=== PATIENT | female | born 1965 | race Caucasian/White ===

== ENCOUNTER 2016-05-29 22:30 | Emergency (ER) | payer MEDICAID ==
[2016-05-29 22:59] VITALS: BP 108/78
--- NOTE | 2016-05-29 23:11 | EDM.PDOC ---
ED HPI Behavioral Health - General Chief Complaint: Behavioral/Psych Stated Complaint: [phone] PSYCHOLOGICAL PROB Time Seen by Provider: 05/29/16 23:10 Source of Information: Reports: Patient Exam Limitations: Reports: No limitations - History of Present Illness INITIAL COMMENTS - FREE TEXT/NARRATIVE: 51 yo white Female c/o feeling bad and does not trust herself and feel unsafe at her living area. PMHx. Psych in the past - 15 yrs. ago no f/u and not eating well. Pt. admits to family problems with daughter on Methamphetamine and the Patient not being able to see her grandchildren. Pt. states PMHx. Chronic Pain. Onset of Symptoms: Reports: other (some time) Symptom Onset Date: 03/23/16 Symptom Onset Time: 12:00 Duration of Symptoms: Reports: Week(s):, Chronic, Getting worse Severity: moderate Context, Behavioral Health: Reports: living situation, family dynamics Associated Symptoms: Reports: anxiety, agitation, depression, decreased concentration, insomnia, paranoia, suicidal thought - Related Data Allergies Allergy/AdvReac Type Severity Reaction Status Date / Time codeine Allergy Cannot Verified 05/29/16 22:59 Remember Sulfa (Sulfonamide Allergy Cannot Verified 05/29/16 22:59 Antibiotics) Remember nexium Allergy Mild tongue Uncoded 12/13/15 12:29 swelling Home Medications: Home Meds ALPRAZolam [Xanax] 0.5 mg PO QID PRN 05/29/16 [History] Upper Back Pain Score (Numeric/FACES): 6 Past Medical History HEENT History: Reports: None Cardiovascular History: Reports: None Respiratory History: Reports: None Gastrointestinal History: Reports: None Genitourinary History: Reports: None EVICTION SPECIALIST History: Reports: None Neurological History: Reports: None Psychiatric History: Reports: None Endocrine/Metabolic History: Reports: None Hematologic History: Reports: None Immunologic History: Reports: None Oncologic (Cancer) History: Reports: None Dermatologic History: Reports: None - Infectious Disease History Infectious Disease History: Reports: Chicken pox, Measles, Mumps - Past Surgical History Head Surgeries/Procedures: Reports: None Other Musculoskeletal Surgeries/Procedures:: back surgury 2008 Social & Family History - Tobacco Use Smoking Status *Q: Current Every Day Smoker Years of Tobacco use: 9 Packs/Tins Daily: 1 Second Hand Smoke Exposure: No - Recreational Drug Use Recreational Drug Use: No ED ROS GENERAL - Review of Systems Review Of Systems: See Below Constitutional: Reports: decreased appetite HEENT: Reports: No symptoms Respiratory: Reports: No Symptoms Cardiovascular: Reports: No symptoms Endocrine: Reports: no symptoms GI/Abdominal: Reports: No symptoms : Reports: no symptoms Musculoskeletal: Reports: no symptoms Skin: Reports: no symptoms Neurological: Reports: No Symptoms Psychiatric: Reports: Agitation, Anxiety, Depression, Mood lability, Suicidal ideation Hematologic/Lymphatic: Reports: no symptoms Immunologic: Reports: no symptoms ED EXAM, BEHAVIORAL HEALTH - Physical Exam Exam: See Below Exam Limited By: No limitations General Appearance: alert, no apparent distress, anxious, thin Eye Exam: bilateral eye: PERRL Ears: normal external exam Nose: normal inspection Throat/Mouth: Normal inspection Head: atraumatic Neck: normal inspection Respiratory/Chest: no respiratory distress, lungs clear Cardiovascular: normal peripheral pulses, regular rate, rhythm GI/Abdominal: normal bowel sounds, soft Back Exam: normal inspection Extremities: normal inspection, normal range of motion Neurological: alert, CN II-XII intact, no motor/sensory deficits Psychiatric: depressed mood, tearful, suicidal thoughts, tangential thoughts Skin Exam: Warm, Intact, Normal color COURSE, BEHAVIORAL HEALTH COMP - Course Vital Signs: Last Vital Signs Temp 36.5 C 05/29/16 22:54 Pulse 102 H 05/29/16 22:54 Resp 18 05/29/16 22:54 BP 108/78 05/29/16 22:54 Pulse Ox 100 05/29/16 22:54 Orders, Labs, Meds: Active Orders 24 hr Category Date Time Status Behavioral Health Evaluation [CONS] Routine Cons 05/29/16 23:27 Active Laboratory Tests 05/29/16 05/29/16 05/29/16 Range/Units 23:14 23:14 23:34 WBC 8.1 (5.0-10.0) 10^3/uL RBC 4.50 (4.2-5.4) 10^6/uL Hgb 15.6 (12.0-16.0) g/dL Hct 45.1 (37.0-47.0) % MCV 100.2 H (80-100) fL MCH 34.7 H (27.0-34.0) pg MCHC 34.6 (33.0-35.0) g/dL Plt Count 212 (150-450) 10^3/uL Neut % (Auto) 41.6 L (42.2-75.2) % Lymph % (Auto) 44.3 (20.5-50.1) % [place] % (Auto) 9.7 H (2-8) % Eos % (Auto) 4.0 H (1.0-3.0) % Baso % (Auto) 0.4 (0.0-1.0) % Sodium (135-145) mmol/L Potassium (3.6-5.0) mmol/L Chloride (101-111) mmol/L Carbon Dioxide (21.0-31.0) mmol/L Anion Gap BUN (7-18) mg/dL Creatinine (0.6-1.3) mg/dL Est Cr Clr Drug Dosing mL/min Estimated GFR (MDRD) BUN/Creatinine Ratio Glucose (74-105) mg/dL Calcium (8.4-10.2) mg/dl Magnesium (1.8-2.5) mg/dL Total Bilirubin (0.2-1.0) mg/dL AST (10-42) IU/L ALT (10-60) IU/L Alkaline Phosphatase (42-121) IU/L Total Protein (6.7-8.2) g/dl Albumin (3.2-5.5) g/dl Globulin Albumin/Globulin Ratio TSH, Ultra Sensitive (0.35-7.0) uIu/mL Urine Color Yellow (YELLOW) Urine Appearance Clear (CLEAR) Urine pH 6.5 (5.0-9.0) Ur Specific [place] <= 1.005 (1.005-1.030) Urine Protein Negative (NEGATIVE) Urine Glucose (UA) Negative (NEGATIVE) Urine Ketones Negative (NEGATIVE) Urine Occult Blood Negative (NEGATIVE) Urine Nitrite Negative (NEGATIVE) Urine Bilirubin Negative (NEGATIVE) Urine Urobilinogen 0.2 (0.2-1.0) mg/dL Ur Leukocyte Esterase Negative (NEGATIVE) Urine RBC 0-5 /HPF Urine WBC 0-5 (0-5/HPF) /HPF Ur Epithelial Cells Few /HPF Urine Bacteria Few (0-FEW/HPF) /HPF Salicylates Urine Opiates Screen Negative (NEGATIVE) Ur Oxycodone Screen Negative (NEGATIVE) Urine Methadone Screen Negative (NEGATIVE) Acetaminophen Ur Barbiturates Screen Negative (NEGATIVE) U Tricyclic Antidepress Negative (NEGATIVE) Ur Phencyclidine Scrn Negative (NEGATIVE) Ur Amphetamine Screen Negative (NEGATIVE) U Methamphetamines Scrn Negative (NEGATIVE) Urine MDMA Screen Negative (NEGATIVE) U Benzodiazepines Scrn Negative (NEGATIVE) Urine Cocaine Screen Negative (NEGATIVE) U Marijuana (THC) Screen Positive H (NEGATIVE) Ethyl Alcohol mg/dL 05/29/16 05/29/16 Range/Units 23:34 23:34 WBC (5.0-10.0) 10^3/uL RBC (4.2-5.4) 10^6/uL Hgb (12.0-16.0) g/dL Hct (37.0-47.0) % MCV (80-100) fL MCH (27.0-34.0) pg MCHC (33.0-35.0) g/dL Plt Count (150-450) 10^3/uL Neut % (Auto) (42.2-75.2) % Lymph % (Auto) (20.5-50.1) % [place] % (Auto) (2-8) % Eos % (Auto) (1.0-3.0) % Baso % (Auto) (0.0-1.0) % Sodium 140 (135-145) mmol/L Potassium 4.0 (3.6-5.0) mmol/L Chloride 102 (101-111) mmol/L Carbon Dioxide 29.0 (21.0-31.0) mmol/L Anion Gap 13.0 BUN 9 (7-18) mg/dL Creatinine 0.9 (0.6-1.3) mg/dL Est Cr Clr Drug Dosing 52.36 mL/min Estimated GFR (MDRD) > 60 BUN/Creatinine Ratio 10.00 Glucose 79 (74-105) mg/dL Calcium 9.1 (8.4-10.2) mg/dl Magnesium 2.0 (1.8-2.5) mg/dL Total Bilirubin 0.2 (0.2-1.0) mg/dL AST 97 H (10-42) IU/L ALT 85 H (10-60) IU/L Alkaline Phosphatase 78 (42-121) IU/L Total Protein 6.7 (6.7-8.2) g/dl Albumin 3.8 (3.2-5.5) g/dl Globulin 2.9 Albumin/Globulin Ratio 1.31 TSH, Ultra Sensitive 2.43 (0.35-7.0) uIu/mL Urine Color (YELLOW) Urine Appearance (CLEAR) Urine pH (5.0-9.0) Ur Specific [place] (1.005-1.030) Urine Protein (NEGATIVE) Urine Glucose (UA) (NEGATIVE) Urine Ketones (NEGATIVE) Urine Occult Blood (NEGATIVE) Urine Nitrite (NEGATIVE) Urine Bilirubin (NEGATIVE) Urine Urobilinogen (0.2-1.0) mg/dL Ur Leukocyte Esterase (NEGATIVE) Urine RBC /HPF Urine WBC (0-5/HPF) /HPF Ur Epithelial Cells /HPF Urine Bacteria (0-FEW/HPF) /HPF Salicylates < 4 Urine Opiates Screen (NEGATIVE) Ur Oxycodone Screen (NEGATIVE) Urine Methadone Screen (NEGATIVE) Acetaminophen < 10 Ur Barbiturates Screen (NEGATIVE) U Tricyclic Antidepress (NEGATIVE) Ur Phencyclidine Scrn (NEGATIVE) Ur Amphetamine Screen (NEGATIVE) U Methamphetamines Scrn (NEGATIVE) Urine MDMA Screen (NEGATIVE) U Benzodiazepines Scrn (NEGATIVE) Urine Cocaine Screen (NEGATIVE) U Marijuana (THC) Screen (NEGATIVE) Ethyl Alcohol < 5 mg/dL Discharge vs Psych Eval/Treatment:: 05/30/16 01:46 Pt. evaluated by Behavioral health worker and informed the worker that she has no psychiatric problems but is having chronic pain. ( Note; Patient did not inform ED nurse or ED doctor of her chronic pain.) Departure - Departure Time of Disposition: 01:48 Disposition: Home, Self-Care 01 Condition: good Clinical Impression: Depressive disorder, Elevated LFTs Chronic pain Qualifiers: Chronic pain type: chronic pain syndrome Qualified Code(s): G89.4 - Chronic pain syndrome Forms: ED Department Discharge Additional Instructions: Rest Take daily multivitamin Take medication for pain as prescribed only - Neurontin 300mg TID # 15 Increase intake of Fluids ( Water / Juice) Stop all Alcohol and try otc Milk Thistle F/U w/ Behavioral Health 2pm on Tuesday May 31, 2016 F/U w/ PCP - My Orders Last 24 Hours: My Active Orders 05/29/16 23:27 Behavioral Health Evaluation [CONS] Routine - Assessment/Plan Last 24 Hours: My Active Orders 05/29/16 23:27 Behavioral Health Evaluation [CONS] Routine
[2016-05-30 00:03] LABS: CHLORIDE,CL 102 mmol/L (101-111); SODIUM,NA 140 mmol/L (135-145)
[2016-05-30 00:04] LABS: ACETAMINOPHEN < 10
[2016-05-30] MEDS ORDERED: Gabapentin 300 MG Cap PO ONE (01:48)
[2016-05-30] MEDS ORDERED: Ondansetron 4 MG Tab.DIS PO ONE (02:02)
== END 2016-05-30 02:15 | disposition left against medical advice (07) ==
LOC: DL.ED 22:30
DX: F32.9 Major depressive disorder, single episode, unspecified (principal); G89.4 Chronic pain syndrome; R79.89 Other specified abnormal findings of blood chemistry; F17.200 Nicotine dependence, unspecified, uncomplicated; Z88.2 Allergy status to sulfonamides; Z88.8 Allergy status to other drugs, medicaments and biological substances
CPT/HCPCS: 36415; 80053; 80305; 81001; 83735; 84443; 85025; 99284; G0480

== ENCOUNTER 2022-11-16 07:19 | Emergency (ER) | payer MEDICAID ==
[2022-11-16 07:55] LABS: BASOPHILS PERCENT AUTO 0.4 % (0.0-1.0); EOSINOPHILS PERCENT AUTO 3.7 % (1.0-3.0); HEMATOCRIT 44.7 % (37.0-47.0); HEMOGLOBIN 15.9 g/dL (12.0-16.0); LYMPHOCYTES PERCENT AUTO 49.6 % (20.5-50.1); MEAN CORPUSCULAR HEMOGLOBIN 35.6 pg (27.0-34.0); MEAN CORPUSCULAR HGB CONC 35.6 g/dL (33.0-35.0); NEUTROPHILS PERCENT AUTO 36.3 % (42.2-75.2); PLATELET COUNT,PLT 143 10^3/uL (150-450); RED BLOOD CELL COUNT 4.47 10^6/uL (4.2-5.4); WHITE BLOOD CELL COUNT,WBC 6.8 10^3/uL (5.0-10.0)
[2022-11-16 08:01] LABS: APPEARANCE,URINE CLEAR (CLEAR); BILIRUBIN,URINE NEGATIVE (NEGATIVE); COLOR,URINE YELLOW (YELLOW); GLUCOSE,URINE NEGATIVE (NEGATIVE); KETONES,URINE NEGATIVE (NEGATIVE); LEUKOCYTE ESTERASE,URINE NEGATIVE (NEGATIVE); NITRITE,URINE NEGATIVE (NEGATIVE); OCCULT BLOOD,URINE NEGATIVE (NEGATIVE); PROTEIN,URINE NEGATIVE (NEGATIVE); UROBILINOGEN,URINE 0.2 mg/dL (0.2-1.0)
[2022-11-16 08:04] LABS: AMPHETAMINES,URINE NEGATIVE (NEGATIVE); BARBITURATES,URINE NEGATIVE (NEGATIVE); BENZODIAZEPINE,URINE NEGATIVE (NEGATIVE); MDMA (ECSTASY), URINE NEGATIVE (NEGATIVE); METHADONE,URINE NEGATIVE (NEGATIVE); METHAMPHETAMINES,URINE NEGATIVE (NEGATIVE); OPIATES,URINE NEGATIVE (NEGATIVE); OXYCODONE,URINE NEGATIVE (NEGATIVE); PHENCYCLIDINE,URINE NEGATIVE (NEGATIVE); TCA,URINE NEGATIVE (NEGATIVE)
[2022-11-16 08:05] LABS: PROTHROMBIN TIME 10.4 SEC (9.0-12.0); PTT,PARTIAL THROMBOPLSTIN TIME 27.5 SEC (22.0-34.0)
[2022-11-16 08:07] LABS: ALANINE AMINOTRANSFERASE,ALT 157 U/L (14-59); ALBUMIN 3.8 g/dL (3.4-5.0); ALKALINE PHOSPHATASE 124 U/L (46-116); ANION GAP 12.6 mEq/L (7-13); ASPARTATE AMNIOTRANSFERASE,AST 147 U/L (15-37); BILIRUBIN TOTAL 0.4 mg/dL (0.2-1.0); BLOOD UREA NITROGEN,BUN 12 mg/dL (7-18); BUN/CREATININE RATIO 14.5 (No establ ref range); CALCIUM 9.1 mg/dL (8.5-10.1); CARBON DIOXIDE,CO2 27 mmol/L (21-32); CHLORIDE,CL 103 mmol/L (98-107); CREATININE 0.83 mg/dL (0.55-1.02); EST CRCL DRUG DOSING (CG) 57.14 mL/min; GLUCOSE RANDOM 114 mg/dL (70-99); LIPASE 105 U/L (16-77); POTASSIUM,K 4.6 mmol/L (3.5-5.1); PROTEIN TOTAL,TP 7.6 g/dL (6.4-8.2); SODIUM,NA 138 mmol/L (136-145)
[2022-11-16 08:08] LABS: C-REACTIVE PROTEIN < 0.05 ng/dL (<=0.30); ESTIMATED GFR 82 mL/min (>=60); ETHANOL BLOOD MEDICAL < 3 mg/dL (0)
[2022-11-16 08:17] LABS: B-TYPE NATRIURETIC PEPTIDE,BNP 19 pg/ml (0-100)
[2022-11-16 08:24] LABS: D-DIMER QUANTITATIVE < 100 ng/mL (0-400)
[2022-11-16] MEDS ORDERED: Ketorolac 30 MG/ML SDV IVPUSH ONE (08:28)
[2022-11-16] MEDS ORDERED: Lactated Ringers 1,000 ML IV ONE (08:28)
[2022-11-16] MEDS ORDERED: Ondansetron 4 MG/2 ML SDV IVPUSH ONE (08:32)
[2022-11-16] MEDS ORDERED: Iopamidol 612 MG/ML 100 ML Bottle IVPUSH ONE (08:35)
[2022-11-16] MEDS ORDERED: Metoclopramide 10 MG/2 ML SDV IVPUSH ONE (09:20)
[2022-11-16 09:32] VITALS: BP 139/91; PULSE 62
== END 2022-11-16 09:57 | disposition home or self-care (01) ==
LOC: DL.ED 07:19
DX: K21.00 Gastro-esophageal reflux disease with esophagitis, without bleeding (principal); F17.210 Nicotine dependence, cigarettes, uncomplicated; Z88.2 Allergy status to sulfonamides; Z88.8 Allergy status to other drugs, medicaments and biological substances; Z88.5 Allergy status to narcotic agent; Z91.030 Bee allergy status; Z79.899 Other long term (current) drug therapy
CPT/HCPCS: 36415; 71045; 74177; 80053; 80305-QW; 80307; 81003; 83690; 83880; 84484; 85025; 85379; 85610; 85730; 86140; 93005; 93010; 96361; 96374; 96375; 99284; 99285-25; J1885; J2405; J2765; J7120; Q9967

== ENCOUNTER 2023-07-11 22:57 | Emergency (ER) | payer MEDICAID ==
[2023-07-11] MEDS: Ketorolac 30 MG/ML SDV IM ONE (23:48)
[2023-07-11] MEDS: Cephalexin 500 MG Cap PO ONE (23:53)
[2023-07-11 23:56] VITALS: BP 136/89; PULSE 98
== END 2023-07-12 00:20 | disposition home or self-care (01) ==
LOC: DL.ED 22:57
DX: L03.114 Cellulitis of left upper limb (principal); L25.9 Unspecified contact dermatitis, unspecified cause; F17.210 Nicotine dependence, cigarettes, uncomplicated; Z90.710 Acquired absence of both cervix and uterus; Z88.8 Allergy status to other drugs, medicaments and biological substances; Z91.014 Allergy to mammalian meats; Z88.2 Allergy status to sulfonamides
CPT/HCPCS: 99283; A9270-GY; J1885

== ENCOUNTER 2023-08-20 13:19 | Emergency (ER) | payer MEDICAID ==
[2023-08-20] MEDS: Sodium Chloride 0.9% 1,000 ML IV ONE (13:42)
[2023-08-20 13:45] VITALS: BP 143/87; PULSE 63
[2023-08-20] MEDS: Sodium Chloride 0.9% 10 ML Syringe FLUSH PRN (13:50)
[2023-08-20 14:07] LABS: INR 1.2 (0.9-1.2); PROTHROMBIN TIME 12.4 SEC (9.0-12.0); PTT,PARTIAL THROMBOPLSTIN TIME 25.4 SEC (22.0-34.0)
[2023-08-20 14:09] LABS: APPEARANCE,URINE CLEAR (CLEAR); BILIRUBIN,URINE NEGATIVE (NEGATIVE); COLOR,URINE YELLOW (YELLOW); GLUCOSE,URINE NEGATIVE (NEGATIVE); KETONES,URINE NEGATIVE (NEGATIVE); LEUKOCYTE ESTERASE,URINE SMALL (NEGATIVE); NITRITE,URINE NEGATIVE (NEGATIVE); OCCULT BLOOD,URINE NEGATIVE (NEGATIVE); PROTEIN,URINE NEGATIVE (NEGATIVE); UROBILINOGEN,URINE 0.2 mg/dL (0.2-1.0)
[2023-08-20 14:11] LABS: LACTIC ACID 3.1 mmol/L (0.4-2.0)
[2023-08-20 14:16] LABS: AMPHETAMINES,URINE NEGATIVE (NEGATIVE); BARBITURATES,URINE NEGATIVE (NEGATIVE); BENZODIAZEPINE,URINE NEGATIVE (NEGATIVE); MDMA (ECSTASY), URINE NEGATIVE (NEGATIVE); METHADONE,URINE NEGATIVE (NEGATIVE); METHAMPHETAMINES,URINE NEGATIVE (NEGATIVE); OPIATES,URINE NEGATIVE (NEGATIVE); OXYCODONE,URINE NEGATIVE (NEGATIVE); PHENCYCLIDINE,URINE NEGATIVE (NEGATIVE); TCA,URINE NEGATIVE (NEGATIVE)
[2023-08-20 14:16] LABS: ALANINE AMINOTRANSFERASE,ALT 346 U/L (14-59); ALBUMIN 3.7 g/dL (3.4-5.0); ALKALINE PHOSPHATASE 156 U/L (46-116); AMYLASE 65 U/L (25-115); ANION GAP 16.8 mEq/L (7-13); ASPARTATE AMNIOTRANSFERASE,AST 391 U/L (15-37); BILIRUBIN TOTAL 1.2 mg/dL (0.2-1.0); BLOOD UREA NITROGEN,BUN 16 mg/dL (7-18); BUN/CREATININE RATIO 19.3 (No establ ref range); C-REACTIVE PROTEIN < 0.50 ng/dL (<=0.50); CALCIUM 8.9 mg/dL (8.5-10.1); CARBON DIOXIDE,CO2 22 mmol/L (21-32); CHLORIDE,CL 101 mmol/L (98-107); CREATININE 0.83 mg/dL (0.55-1.02); EST CRCL DRUG DOSING (CG) 51.21 mL/min; ESTIMATED GFR 81 mL/min (>=60); ETHANOL BLOOD MEDICAL 26 mg/dL (0); GLUCOSE RANDOM 104 mg/dL (70-99); LIPASE 77 U/L (16-77); MAGNESIUM 2.1 mg/dL (1.8-2.4); POTASSIUM,K 3.8 mmol/L (3.5-5.1); PROTEIN TOTAL,TP 7.4 g/dL (6.4-8.2); SODIUM,NA 136 mmol/L (136-145); TSH ULTRASENSITIVE 2.73 uIU/mL (0.36-3.74)
[2023-08-20 14:23] LABS: BACTERIA,URINE FEW /HPF (0-FEW/HPF); EPITHELIAL CELLS,URINE MODERATE /HPF (NOT SEEN); MUCUS,URINE FEW /LPF (NOT SEEN); RBC,URINE 0-5 /HPF (0-5)
[2023-08-20] MEDS: LORazepam 2 MG/ML SDV IVPUSH ONE (14:24)
[2023-08-20] MEDS: MVI, Adult with Vitamin K 10 ML, Folic Acid 1 MG, Thiamine 100 MG in Lactated Ringers 1... IV ONE (14:28)
[2023-08-20 14:31] LABS: BASOPHILS PERCENT AUTO 0.5 % (0.0-1.0); EOSINOPHILS PERCENT AUTO 0.3 % (1.0-3.0); HEMOGLOBIN 15.3 g/dL (12.0-16.0); LYMPHOCYTES PERCENT AUTO 38.4 % (20.5-50.1); MEAN CORPUSCULAR HEMOGLOBIN 38.3 pg (27.0-34.0); MEAN CORPUSCULAR HGB CONC 36.4 g/dL (33.0-35.0); MEAN CORPUSCULAR VOLUME 105.3 fL (80-100); MONOCYTES PERCENT AUTO 8.7 % (2-8); NEUTROPHILS PERCENT AUTO 52.1 % (42.2-75.2); PLATELET COUNT,PLT 119 10^3/uL (150-450); RED BLOOD CELL COUNT 3.99 10^6/uL (4.2-5.4); WHITE BLOOD CELL COUNT,WBC 6.7 10^3/uL (5.0-10.0)
[2023-08-20] MEDS: Iopamidol 612 MG/ML 100 ML Bottle IVPUSH ONE (14:54)
[2023-08-20] MEDS: HYDROmorphone 1 MG/ML Syringe IVPUSH ONE (15:19)
[2023-08-20] MEDS: methylPREDNISolone Sodium Succinate 125 MG/2 ML SDV IVPUSH ONE (15:38)
[2023-08-20] MEDS: Metoclopramide 10 MG/2 ML SDV IVPUSH ONE (15:38)
[2023-08-20] MEDS: Take Home: traMADol 50 MG, 4 Tab Pack PO ONE (15:57)
== END 2023-08-20 16:15 | disposition home or self-care (01) ==
LOC: DL.ED 13:19
DX: K52.9 Noninfective gastroenteritis and colitis, unspecified (principal); K75.9 Inflammatory liver disease, unspecified; F10.29 Alcohol dependence with unspecified alcohol-induced disorder; F41.8 Other specified anxiety disorders; R74.01 Elevation of levels of liver transaminase levels; R63.0 Anorexia; F17.210 Nicotine dependence, cigarettes, uncomplicated; Z90.710 Acquired absence of both cervix and uterus; Z88.2 Allergy status to sulfonamides; Z88.5 Allergy status to narcotic agent; Z91.030 Bee allergy status
CPT/HCPCS: 36415; 71045; 74177; 80053; 80305; 80307; 81001; 82140; 82150; 83605; 83690; 83735; 84145; 84443; 84484; 85025; 85610; 85730; 86140; 87086; 93005; 93010; 96361; 96365; 96375; 99285; A9270; J1170; J2060; J2765; J2919; J3411; J7030; J7120; Q9967; 87088; 87186; J3490

== ENCOUNTER 2023-10-02 06:48 | Day surgery (SDC) | payer MEDICAID ==
[2023-10-02] MEDS ORDERED: fentaNYL 100 MCG/2 ML SDV ONE (07:08)
[2023-10-02] MEDS ORDERED: Midazolam 1 MG/ML 2 ML SDV ONE (07:08)
[2023-10-02] MEDS: Dextrose 5%-0.45% NaCl 1,000 ML IV SCH (07:15)
[2023-10-02] MEDS: fentaNYL 100 MCG/2 ML SDV IV ONE ×6 (08:03→08:15)
[2023-10-02] MEDS: Midazolam 1 MG/ML 2 ML SDV IV ONE ×6 (08:05→08:10)
[2023-10-02 11:49] VITALS: PULSE 62
[2023-10-02 11:50] VITALS: BP 118/81
== END 2023-10-02 10:52 | disposition home or self-care (01) ==
LOC: DL.ENDO 06:48
PROVIDERS: ATTEND Internal Medicine Gastroenterology
DX: Z12.11 Encounter for screening for malignant neoplasm of colon (principal); K76.9 Liver disease, unspecified; F41.1 Generalized anxiety disorder; F17.210 Nicotine dependence, cigarettes, uncomplicated
CPT/HCPCS: J2250; J3010; J7799

== ENCOUNTER 2024-09-11 14:07 | Emergency (ER) | payer MEDICAID ==
[2024-09-11 14:21] VITALS: BP 127/56; PULSE 68
== END 2024-09-11 14:26 | disposition home or self-care (01) ==
LOC: DL.ED 14:07
DX: R07.81 Pleurodynia (principal); Z79.899 Other long term (current) drug therapy; Z88.8 Allergy status to other drugs, medicaments and biological substances; Z91.030 Bee allergy status; Z88.2 Allergy status to sulfonamides; Z88.5 Allergy status to narcotic agent; Z87.81 Personal history of (healed) traumatic fracture
CPT/HCPCS: 99283